=== PATIENT | male | born 1960 | race Caucasian/White ===

== ENCOUNTER → 2016-11-05 | Outpatient (CLI) | payer BC ==
--- NOTE | 2016-11-10 11:07 | P.ARTDOP ---
Arterial Doppler LOWER EXTREMITY ARTERIAL DOPPLER: DATE OF SERVICE: 11/05/2016 Reason for study: Left foot pain. Doppler waveforms: Multiphasic throughout on the left. Multiphasic to the ankle on the right. Monophasic dorsalis pedis on the right.. Pulse volume recording: Fairly normal configuration into digits. Pressure gradients: [id number] gradient across the knee on the right. Moderate gradient across the thigh and across the knee on the left.. Ankle-brachial indices: 0.74 on the right and 0.66 on the left.. Toe pressures: 67 on the right, 67 on the left Impression: [id number] right fem-pop disease. Moderate left fem-pop disease. Clinical correlation suggested.
== END | disposition home or self-care (01) ==
LOC: RADUSWWP 14:03
PROVIDERS: ATTEND Family Medicine
DX: M79.672 Pain in left foot (principal); F17.200 Nicotine dependence, unspecified, uncomplicated; I73.9 Peripheral vascular disease, unspecified
CPT/HCPCS: 93923

== ENCOUNTER 2017-07-04 11:59 | Day surgery (SDC) | payer BC ==
[2017-07-01 10:49] VITALS: BMI 26.6
[~2017-07-04 11:59] MED LIST: LACTATED RINGERS 1,000 ML IV SCH
[2017-07-04 12:55] VITALS: RESP 16; TEMP 98.1
[2017-07-04] MEDS ORDERED: LIDOCAINE 1% 20 ML VIAL (10MG/ML) FOR IV START INTRADERMA ONE (13:10)
[2017-07-04] MEDS ORDERED: LIDOCAINE 1% INJ 10MG/ML (20 ML MDV) ONE (13:43)
[2017-07-04] MEDS ORDERED: PROPOFOL 10 MG/ML 20 ML VIAL IV ONE (13:43)
--- NOTE | 2017-07-04 14:27 | P.PCN ---
Date of Procedure: 07/04/17 Procedure(s) Performed: Procedure: Total colonoscopy. Preoperative diagnosis: Screening for neoplasia. Postoperative diagnosis: Diverticulosis with no evidence of acute diverticulitis , strictures, polyps or cancer. Preparation: HalfLytely prep. Sedation: Was provided by anesthesia. Brief clinical history: The patient is a 57-year-old male who is scheduled for this evaluation for screening for neoplasia because of history of polyps. His last exam was in June 2012. The patient has no abdominal complaints, bleeding or anemia. Procedure: With the patient on his left lateral decubitus position and after informed consent and adequate sedation, the perianal area was inspected and it did not show any fissures or fistulas. There were no masses felt on digital rectal examination. The Olympus CFQ 160L video colonoscope was then inserted in the rectum in the usual fashion and advanced to the cecum. The preparation was less than ideal and I spent some time suctioning and cleansing thick secretions and fecal debris. There were multiple diverticular orifices seen scattered in the sigmoid as previously described and occasional diverticular orifices around the hepatic flexure and on the right side as well with no evidence of acute diverticulitis or strictures. The mucosa appeared healthy. No obvious polyps or tumors were seen. I retroflexed the endoscope in the rectum before the endoscope was withdrawn. The patient tolerated the procedure well. Plan: The patient was reassured. Discussed dietary measures. He will follow up with you as planned and I recommended repeat exam in 5 years.
[2017-07-04 14:31] VITALS: BP 120/78; PULSE 73
== END 2017-07-04 14:48 | disposition home or self-care (01) ==
LOC: ORWHC2ENDO 11:59
DX: Z12.11 Encounter for screening for malignant neoplasm of colon (principal); K57.30 Diverticulosis of large intestine without perforation or abscess without bleeding; Z86.010 Personal history of colon polyps; F17.210 Nicotine dependence, cigarettes, uncomplicated
CPT/HCPCS: J2001; J2704; G0105; 45378

== ENCOUNTER 2017-10-12 07:28 | Day surgery (SDC) | payer BC ==
[2017-10-06 09:05] VITALS: BMI 26.6
[~2017-10-12 07:28] MED LIST changes: +DEXAMETHASONE SOD PHOSPHATE 10 MG/ML 1 ML VIAL IV ONE; +DEXAMETHASONE SOD PHOSPHATE 4 MG/ML 1 ML VIAL IV ONE; +FAMOTIDINE 20 MG/2 ML VIAL IV ONE; +MORPHINE SULFATE 4 MG/0.8 ML SYRINGE (INJ) IV PRN; +ONDANSETRON 4 MG/2 ML VIAL IVP ONE; +ONDANSETRON ODT 4 MG TAB PO ONE; +ceFAZolin 1,000 MG in DEXTROSE/WATER 1 50ML.BAG IV ONE
[2017-10-12] MEDS: OXYMETAZOLINE 0.05% NASL SPRAY 1 SPRAY BOTTLE NASAL ONE ×5 (08:13→08:37)
[2017-10-12 08:16] VITALS: TEMP 97.8
[2017-10-12] MEDS ORDERED: LIDOCAINE 1% 20 ML VIAL (10MG/ML) FOR IV START INTRADERMA ONE (08:34)
[2017-10-12] MEDS ORDERED: ONDANSETRON 4 MG/2 ML VIAL IVP ONE (08:35)
[2017-10-12] MEDS ORDERED: MIDAZOLAM 2 MG/2 ML VIAL IV ONE (08:46)
[2017-10-12] MEDS ORDERED: LIDOCAINE 1% INJ 10MG/ML (20 ML MDV) ONE (09:53)
[2017-10-12] MEDS ORDERED: fentaNYL (PF) 50 MCG/ML 2 ML AMP ONE (09:53)
[2017-10-12] MEDS ORDERED: MIDAZOLAM 2 MG/2 ML VIAL ONE (09:53)
[2017-10-12] MEDS ORDERED: SUCCINYLCHOLINE CHLORIDE 100 MG/5 ML SYR IV ONE (09:53)
[2017-10-12] MEDS ORDERED: PROPOFOL 10 MG/ML 20 ML VIAL IV ONE (09:53)
[2017-10-12] MEDS ORDERED: BACITRACIN 500 UNIT/GM OINT 28.4 GM TUBE TOPICAL ONE (10:13)
[2017-10-12] MEDS ORDERED: LIDOCAINE 1%-EPI 1:100,000 20 ML VIAL SUBMUCOSAL ONE ×2 (10:13)
--- NOTE | 2017-10-12 10:48 | P.OP ---
Date of Procedure: 10/12/17 Preoperative Diagnosis: Deviated nasal septum Inferior turbinate hypertrophy Postoperative Diagnosis: Same Procedure(s) Performed: Septoplasty Outfracture and submucous resection of the inferior turbinates Anesthesia: SAMANTHAA Surgeon: Shadi Read Estimated Blood Loss (ml): 3 Pathology: other (Nasal septal bone and cartilage) Condition: stable Disposition: PACU Indications for Procedure: This is a 57-year-old white male whose had difficulties with chronic nasal airway obstruction which has not improved with medical management Operative Findings: Nasal septum has deviation bilaterally left greater than right with inferior turbinate hypertrophy bilaterally Description of Procedure: The patient was brought in the operative suite and placed in a supine position. The patient underwent induction of general anesthesia with oral endotracheal intubation without difficulty. The patient was prepped and draped using aseptic fashion. 1% lidocaine with 1 100,000 epinephrine was infused submucosally both sides nasal septum. While this was taking vasoconstrictive effect the inferior turbinates were infractured with the Beltrami elevator partial submucous resection inferior turbinates performed with Coblation device ablating a portion of the submucosal soft tissue. There were then outfractured with the Beltrami elevator. A left hemitransfixion incision was made with the mucoperichondrial and mucoperiosteal flap on the left elevated. Bony cartilaginous junction was disarticulated and the mucoperiosteal flap on the right was elevated. Bony nasal septal deformities were removed with Srinivasan forceps. An inferior cartilaginous strip was removed leaving a full 1.5 cm caudal strut. Checking intranasally this corrected nasoseptal deformities and the hemitransfixion incision was closed with a running 4-0 chromic suture. Bilateral Contreras airway splints coated bacitracin ointment were placed in the nasal cavities and sutured trans-septally with a 4-0 Vicryl suture. The patient was suctioned in oral gastric fashion. The patient was allowed to emerge from general anesthesia having tolerated procedure well and was extubated in the operating suite and transferred to postop recovery area in satisfactory condition
[2017-10-12 11:33] VITALS: RESP 16
[2017-10-12] MEDS ORDERED: LACTATED RINGERS 1,000 ML IV ONE ×2 (11:46)
[2017-10-12] MEDS ORDERED: ENALAPRILAT 1.25 MG/ML 1 ML VIAL IVP ONE (11:49)
[2017-10-12] MEDS: MORPHINE SULFATE 4 MG/0.8 ML SYRINGE (INJ) IVP ONE ×2 (12:08→12:13)
[2017-10-12 13:26] VITALS: BP 161/88; PULSE 86
== END 2017-10-12 13:44 | disposition home or self-care (01) ==
LOC: OR 07:28
PROVIDERS: ATTEND Otolaryngology
DX: J34.2 Deviated nasal septum (principal); J34.3 Hypertrophy of nasal turbinates; J44.9 Chronic obstructive pulmonary disease, unspecified; F17.200 Nicotine dependence, unspecified, uncomplicated; Z79.891 Long term (current) use of opiate analgesic; Z79.899 Other long term (current) drug therapy
CPT/HCPCS: 88300; 30520; 30140; J2250; J1100; J2405; J2001; J3010; J0690; J0330; J2704; J2270

== ENCOUNTER 2018-08-19 18:42 | Emergency (ER) | payer BC ==
[2018-08-19 18:57] VITALS: RESP 18; TEMP 97.9
[2018-08-19] MEDS ORDERED: MECLIZINE 12.5 MG TAB PO STA (19:22)
[2018-08-19] MEDS ORDERED: SODIUM CHLORIDE 0.9% 1,000 ML IV STA (19:22)
[2018-08-19] MEDS ORDERED: METOCLOPRAMIDE 5 MG/ML 2 ML VIAL IVP STA (19:22)
--- NOTE | 2018-08-19 19:25 | ED ---
General Adult HPI - General Chief complaint: Dizziness Stated complaint: DIZZINESS Time Seen by Provider: 08/19/18 19:10 Source: patient, RN notes reviewed Mode of arrival: ambulatory Limitations: no limitations - History of Present Illness Initial comments: Patient is a pleasant 58-year-old male presenting to the emergency Department with complaints of dizziness. Onset was when he woke early this morning. Symptoms were somewhat worse at that point. Patient became very nauseated. Patient has only mild nausea now. Dizziness is described as a spinning type sensation. Dizziness is worse with movement and upright position. Dizziness improved with lying down. No headache. No confusion. No speech problems. No weakness. No history of similar symptoms previously. Patient was cleaning wax out of his ears yesterday - Related Data Home Medications Medication Instructions Recorded Confirmed Cyanocobalamin (Vitamin B-12) 1,000 mcg PO DAILY 10/12/17 08/19/18 [Vitamin B-12] Krill Oil 500 mg PO DAILY 10/12/17 08/19/18 Niacin (Inositol Niacinate) 500 mg PO DAILY 10/12/17 08/19/18 [Niacin 500 mg Capsule] Previous Rx's Medication Instructions Recorded Meclizine [Antivert] 25 mg PO TID PRN #12 tab 08/19/18 Metoclopramide HCl [Reglan] 10 mg PO Q6HR PRN #15 tablet 08/19/18 Allergies Allergy/AdvReac Type Severity Reaction Status Date / Time No Known Allergies Allergy Verified 08/19/18 19:28 Review of Systems ROS Statement: Those systems with pertinent positive or pertinent negative responses have been documented in the HPI. ROS Other: All systems not noted in ROS Statement are negative. Constitutional: Denies: fever Eyes: Denies: eye pain ENT: Denies: ear pain Respiratory: Denies: cough Cardiovascular: Denies: chest pain Endocrine: Denies: fatigue Gastrointestinal: Denies: abdominal pain Genitourinary: Denies: dysuria Musculoskeletal: Denies: back pain Skin: Denies: rash Neurological: Reports: vertigo. Denies: headache, weakness Past Medical History Past Medical History: No Reported History Additional Past Medical History / Comment(s): SINUS ISSUES History of Any Multi-Drug Resistant Organisms: None Reported Past Surgical History: Adenoidectomy, Tonsillectomy Additional Past Surgical History / Comment(s): COLONOSCOPY, cataract Past Anesthesia/Blood Transfusion Reactions: No Reported Reaction Past Psychological History: No Psychological Hx Reported Smoking Status: Former smoker Past Alcohol Use History: None Reported Past Drug Use History: None Reported - Past Family History Mother Family Medical History: Cancer General Exam Limitations: no limitations General appearance: alert, in no apparent distress Head exam: Present: atraumatic Eye exam: Present: normal appearance, PERRL, EOMI. Absent: nystagmus ENT exam: Present: normal oropharynx, TM's normal bilaterally Neck exam: Present: normal inspection Respiratory exam: Present: normal lung sounds bilaterally Cardiovascular Exam: Present: regular rate, normal rhythm GI/Abdominal exam: Present: soft. Absent: tenderness Extremities exam: Present: normal inspection Neurological exam: Present: alert, oriented X3, CN II-XII intact. Absent: motor sensory deficit Expanded Neurological exam: Present: protecting the airway Speech: Present: fluid speech Cranial nerves: EOM's Intact: Normal, Facial Sensation: Normal Sensory exam: Upper Extremity Light Touch: Normal, Lower Extremity Light Touch: Normal Motor strength exam: RUE: 5, LUE: 5, RLE: 5, LLE: 5 Eye Response: (4) open spontaneously Motor Response: (6) obeys commands Verbal Response: (5) oriented Psychiatric exam: Present: normal affect, normal mood Skin exam: Present: normal color Course Vital Signs 08/19/18 08/19/18 18:53 20:43 Temperature 97.9 F Pulse Rate 73 80 Respiratory 18 18 Rate Blood Pressure 144/88 136/83 O2 Sat by Pulse 97 97 Oximetry Medical Decision Making - Medical Decision Making Patient reevaluated and significantly improved. Patient able to get up and walk around. Patient states he feels near normal. Patient is comfortable with discharge home. Patient and family updated. - Lab Data Result diagrams: 08/19/18 19:38 08/19/18 19:38 Lab Results 08/19/18 08/19/18 08/19/18 Range/Units 19:38 19:38 19:38 WBC 8.3 (3.8-10.6) k/uL RBC 4.73 (4.30-5.90) m/uL Hgb 14.5 (13.0-17.5) gm/dL Hct 41.4 (39.0-53.0) % MCV 87.6 (80.0-100.0) fL MCH 30.7 (25.0-35.0) pg MCHC 35.1 (31.0-37.0) g/dL RDW 12.6 (11.5-15.5) % Plt Count 183 (150-450) k/uL Neutrophils % 73 % Lymphocytes % 18 % Monocytes % 5 % Eosinophils % 2 % Basophils % 1 % Neutrophils # 6.1 (1.3-7.7) k/uL Lymphocytes # 1.5 (1.0-4.8) k/uL Monocytes # 0.4 (0-1.0) k/uL Eosinophils # 0.1 (0-0.7) k/uL Basophils # 0.0 (0-0.2) k/uL PT 10.3 (9.0-12.0) sec INR 1.0 (<1.2) APTT 25.5 (22.0-30.0) sec Sodium 139 (137-145) mmol/L Potassium 4.5 (3.5-5.1) mmol/L Chloride 108 H (98-107) mmol/L Carbon Dioxide 21 L (22-30) mmol/L Anion Gap 10 mmol/L BUN 15 (9-20) mg/dL Creatinine 0.68 (0.66-1.25) mg/dL Est GFR (CKD-EPI)AfAm >90 (>60 ml/min/1.73 sqM) Est GFR (CKD-EPI)NonAf >90 (>60 ml/min/1.73 sqM) Glucose 153 H (74-99) mg/dL Calcium 9.7 (8.4-10.2) mg/dL Total Bilirubin 0.7 (0.2-1.3) mg/dL AST 21 (17-59) U/L ALT 36 (21-72) U/L Alkaline Phosphatase 69 (38-126) U/L Total Protein 7.9 (6.3-8.2) g/dL Albumin 4.5 (3.5-5.0) g/dL - Radiology Data Radiology results: report reviewed (Computed tomography scan of the brain reveals no acute process) Disposition Clinical Impression: Vertigo Disposition: HOME SELF-CARE Condition: Stable Instructions (If sedation given, give patient instructions): Dizziness (ED) Additional Instructions: Please follow-up with primary care physician in the next day or 2 for recheck. Follow-up with neurology and ENT if symptoms continue. Return for weakness, confusion, difficulty walking, worsening symptoms or other concerns. Prescriptions: Meclizine [Antivert] 25 mg PO TID PRN #12 tab PRN Reason: dizziness Metoclopramide HCl [Reglan] 10 mg PO Q6HR PRN #15 tablet PRN Reason: Nausea Is patient prescribed a controlled substance at d/c from ED?: No Referrals: Delbert Harrell DO [Primary Care Provider] - 1-2 days Time of Disposition: 21:06
[2018-08-19 20:03] LABS: Basophils % (A) 1 %; Eosinophils # (A) 0.1 k/uL (0-0.7); Eosinophils % (A) 2 %; HCT 41.4 % (39.0-53.0); HGB 14.5 gm/dL (13.0-17.5); Lymphocytes # (A) 1.5 k/uL (1.0-4.8); Lymphocytes % (A) 18 %; MCH 30.7 pg (25.0-35.0); MCHC 35.1 g/dL (31.0-37.0); MCV 87.6 fL (80.0-100.0); Mean Platelet Volume 7.4; Monocytes # (A) 0.4 k/uL (0-1.0); Monocytes % (A) 5 %; Neutrophils # (A) 6.1 k/uL (1.3-7.7); Neutrophils % (A) 73 %; Platelet Count 183 k/uL (150-450); RBC 4.73 m/uL (4.30-5.90); RDW 12.6 % (11.5-15.5); WBC 8.3 k/uL (3.8-10.6)
--- NOTE | 2018-08-19 20:11 | CT ---
EXAMINATION TYPE: CT brain wo con DATE OF EXAM: 08/19/2018 COMPARISON: None HISTORY: Vertigo. FINDINGS: Ventricles of normal size. There is no mass effect nor midline shift. There is no sign of intracrania l hemorrhage. The calvarium is intact. CT DLP: 1172.4 mGycm Automated exposure control for dose reduction was used. Impression Negative CT scan of the brain.
[2018-08-19 20:15] LABS: Partial Thromboplastin Time 25.5 sec (22.0-30.0); Prothrombin Time 10.3 sec (9.0-12.0)
[2018-08-19 20:26] LABS: ALT 36 U/L (21-72); AST 21 U/L (17-59); Albumin 4.5 g/dL (3.5-5.0); Alkaline Phosphatase 69 U/L (38-126); Anion Gap 10 mmol/L; Blood Urea Nitrogen 15 mg/dL (9-20); Calcium 9.7 mg/dL (8.4-10.2); Carbon Dioxide 21 mmol/L (22-30); Chloride 108 mmol/L (98-107); Glucose 153 mg/dL (74-99); Potassium 4.5 mmol/L (3.5-5.1); Sodium 139 mmol/L (137-145); Total Bilirubin 0.7 mg/dL (0.2-1.3); Total Protein 7.9 g/dL (6.3-8.2)
[2018-08-19 20:44] VITALS: BP 136/83; PULSE 80
== END 2018-08-19 21:24 | disposition home or self-care (01) ==
LOC: EC 18:42
DX: R42 Dizziness and giddiness (principal); R11.0 Nausea; Z87.891 Personal history of nicotine dependence; Z79.899 Other long term (current) drug therapy
CPT/HCPCS: 36415; 93005; 80053; 85025; 85610; 85730; 70450; 99284; 96374; 96361 ×2; J2765

== ENCOUNTER → 2020-07-23 | Outpatient (CLI) | payer BC ==
--- NOTE | 2020-07-23 11:51 | XR ---
EXAMINATION TYPE: XR lumbosacral spine min 4V DATE OF EXAM: 07/23/2020 COMPARISON: None HISTORY: Low back pain TECHNIQUE: Lumbar spine is examined in 5 views. FINDINGS: Vacuum disc phenomenon is present L5-S1. There is a grade 1 spondylolisthesis of L5 anterio r on S1. Spondylolysis of L5 is present. Minimal facet degenerative changes otherwise present. There 5 lumbar-type vertebral bodies. The pedicles are intact. Vertebral body heights are preserved. Disc h eights otherwise appear preserved. IMPRESSION: 1. Spondylolysis of L5 with a grade 1 spondylolisthesis of L5 anterior on S1. 2. Degenerative disc changes L5-S1
== END | disposition home or self-care (01) ==
LOC: RADXRYALE 11:07
PROVIDERS: ATTEND Family Medicine
DX: M43.17 Spondylolisthesis, lumbosacral region (principal); M51.37 Other intervertebral disc degeneration, lumbosacral region
CPT/HCPCS: 72110

== ENCOUNTER → 2021-03-03 | Outpatient (CLI) | payer BC ==
[2021-03-03 09:40] LABS: African American GFR (CKD) >90 (>60 ml/min/1.73 sqM); Blood Urea Nitrogen 14 mg/dL (9-20); Non-African American GFR(CKD) >90 (>60 ml/min/1.73 sqM)
--- NOTE | 2021-03-03 10:39 | CT ---
EXAMINATION TYPE: CT abdomen w con DATE OF EXAM: 03/03/2021 COMPARISON: None HISTORY: Gross hematuria CT DLP: 919 mGycm Automated exposure control for dose reduction was used. TECHNIQUE: Helical acquisition of images was performed from the lung bases through the top of iliac crest to include entire abdomen. CONTRAST: Performed with Oral Contrast and with IV Contrast, patient injected with 100 ml mL of Isovue 300. FINDINGS: There are coronary artery calcifications present. Atheromatous changes are present in the a ortoiliac distribution LUNG BASES: No significant abnormality is appreciated. LIVER/GB: Liver shows low attenuation possibly due to hepatic steatosis, gallbladder is within normal limits. PANCREAS: No significant abnormality is seen. SPLEEN: No significant abnormality is seen. ADRENALS: No significant abnormality is seen. KIDNEYS: Punctate calcification near the renal hilum may be vascular in right, arterial calcification s also present in the hilum of the left, there is no hydronephrosis or cortical mass. Ureters are inc ompletely evaluated.. BOWEL: No significant abnormality is seen. LYMPH NODES: No significant abnormality is appreciated. OSSEOUS STRUCTURES: Bilateral spondylolysis is noted at L5, there is an anterolisthesis grade 1 L5-S 1, loss of disc height is present at L5-S1 with associated vacuum phenomenon. FREE AIR: No Free Air visible ASCITES: None visible. RETROPERITONEAL ADENOPATHY: No Retroperitoneal Adenopathy visible. OTHER: IMPRESSION: PUNCTATE NONOBSTRUCTIVE CALCIFICATION RIGHT KIDNEY IS INDETERMINATE. ADDITIONAL FINDINGS ABOVE.
== END | disposition home or self-care (01) ==
LOC: RADCTMAIN 08:56
PROVIDERS: ATTEND Urology
DX: N28.89 Other specified disorders of kidney and ureter (principal)
CPT/HCPCS: 82565; 84520; 74160; 36415; Q9967

== ENCOUNTER → 2021-05-19 | Outpatient (CLI) | payer BC ==
--- NOTE | 2021-05-19 23:40 | US ---
EXAMINATION TYPE: US kidneys/renal and bladder DATE OF EXAM: 05/19/2021 COMPARISON: CT CLINICAL HISTORY: C67.9 Bladder cancer. Since January patient has had 2 cystoscopes for Bladder CA. EXAM MEASUREMENTS: Right Kidney: 11.8 x 6.7 x 5.3 cm Left Kidney: 11.8 x 5.9 x 5.3 cm Post Void Residual Volume: 59.4 mL Right Kidney: No hydronephrosis seen; hyperechoic parallel vessel olivera seen suggests vessel wall nithya cifications Left Kidney: No hydronephrosis seen; hyperechoic parallel vessel olivera seen suggests vessel wall calc ifications; mid lower pole shadowing, hyperechoic calcification is noted = 0.5 x 0.3 x 0.4cm. Bladder: hyperechoic, irregular posterior bladder wall thickening is noted and at right lateral bladd er wall which may be scarring from cystoscopies with biopsies. Bilateral Jets seen: Yes Normal Post Void Residual: no, as mildly abnormal post void volume is noted as is greater than 50.0 ml. IMPRESSION: Irregular urinary bladder wall thickening. Mild post void residual.
== END | disposition home or self-care (01) ==
LOC: RADUSWWP 16:19
PROVIDERS: ATTEND Urology
DX: C67.9 Malignant neoplasm of bladder, unspecified (principal)
CPT/HCPCS: 76770

== ENCOUNTER → 2024-02-23 | Outpatient (CLI) | payer BC ==
[2024-02-23 16:49] LABS: African American GFR (CKD) >90 (>60 ml/min/1.73 sqM); Blood Urea Nitrogen 23 mg/dL (9-20); Non-African American GFR(CKD) 83 (>60 ml/min/1.73 sqM)
--- NOTE | 2024-02-24 11:54 | CT ---
EXAMINATION TYPE: CT abdomen pelvis wo/w con CT DLP: 1779.8 mGycm, Automated exposure control for dose reduction was used. DATE OF EXAM: 02/23/2024 10:03 PM COMPARISON: CT angiogram 03/17/2023, CT abdomen 03/03/2021 CLINICAL INDICATION:Male, 63 years old with history of C67.9 MALIGNANT NEOPLASM OF BLADDER, UNSPECIFI ED; Bladder Ca. TECHNIQUE: Standard CT of the abdomen and pelvis before and after the uneventful administration of 100 cc of Isovue-300 intravenously. Oral contrast administered. Coronal and sagittal reformats were p erformed. FINDINGS: LOWER CHEST: Lung bases are clear. RCA calcifications. ABDOMEN LIVER: Unremarkable GALLBLADDER AND BILE DUCTS: Unremarkable. PANCREAS: Unremarkable. SPLEEN: Unremarkable. ADRENAL GLANDS: Unremarkable. KIDNEYS AND URETERS: No evidence of hydronephrosis . Nonobstructive left lower pole 2 mm calculus. Th e kidneys enhance symmetrically. No suspicious focal lesion identified. Contrast is demonstrated with in both collecting systems on the delayed phase. Bilateral renal vascular calcifications. PELVIS BLADDER: Limited evaluation due to noncontrast appearance. Redemonstration of outpouching near the re ctus likely representing urachal remnant. Similar eccentric thickening identified near the right uret eral orifice. No calcification identified. REPRODUCTIVE: Unremarkable. ABDOMEN & PELVIS STOMACH AND BOWEL: Stomach is unremarkable. Periampullary duodenal diverticulum. Distal colonic diver ticulosis without evidence for acute diverticulitis. Mild colonic stool burden. Redundant sigmoid col on. Oral contrast reaches the mid small bowel. The appendix is within normal limits. No evidence of b owel obstruction. PERITONEUM: No evidence of pneumoperitoneum or free fluid. VASCULATURE: Moderate atherosclerotic calcifications are present throughout the abdominal aorta and i ts branches. No evidence of aortic aneurysm. Short segment high-grade stenosis involving the bilatera l common carotid artery secondary to calcified plaque. MUSCULOSKELETAL: No acute osseous abnormalities. Grade 1 anterolisthesis of L5 on S1 with bilateral p ars defects. Advanced degenerative disc disease at this level. LYMPH NODES: No gross evidence for lymphadenopathy. SOFT TISSUE/ABDOMINAL WALL: Unremarkable IMPRESSION: 1. Similar mild thickening of the urinary bladder wall near the right ureteral orifice. Examination is limited due to lack of contrast within the bladder due to technique. 2. Similar urinary bladder outpouching likely representing a urachal remnant. 3. No suspicious renal mass or hydronephrosis. 4. No suspicious lymphadenopathy.
== END | disposition home or self-care (01) ==
LOC: RADCTMAIN 15:59
PROVIDERS: ATTEND Urology
DX: C67.9 Malignant neoplasm of bladder, unspecified (principal)
CPT/HCPCS: 36415; 74178; 82565; 84520